=== PATIENT | male | born 1980 | race Caucasian/White ===

== ENCOUNTER 2018-03-07 10:22 | Day surgery (SDC) | payer BC ==
[~2018-03-07] VITALS: Ht 180.3 cm; Wt 81.5 kg
[2018-03-07 11:01] VITALS: BP 125/82
[2018-03-07] MEDS ORDERED: NO MEDICATIONS (11:06)
[2018-03-07] MEDS ORDERED: LACTATED RINGERS 1,000 ML IV SCH (11:28)
[2018-03-07] MEDS ORDERED: MIDAZOLAM 1 MG/ML, 5ML ONE (13:36)
[2018-03-07] MEDS ORDERED: OMNIPAQUE 350 MG/ML, 50 ML BOTTLE ONE (13:55)
== END 2018-03-07 15:45 | disposition home or self-care (01) ==
LOC: OUT 10:22
PROVIDERS: ATTEND Urology
DX: N35.011 Post-traumatic bulbous urethral stricture (principal); Z87.891 Personal history of nicotine dependence; Z72.89 Other problems related to lifestyle; Z98.890 Other specified postprocedural states
CPT/HCPCS: 51610; 74450; J2250; Q9967

== ENCOUNTER 2018-05-22 05:32 | Observation (INO) | payer BC ==
[~2018-05-22] VITALS: Ht 180.3 cm; Wt 78.5 kg
[~2018-05-22 05:32] MED LIST: NO MEDICATIONS
[2018-05-22] MEDS ORDERED: BUPIVACAINE/PF-EPI 0.5% 1:200K ONE (06:39)
[2018-05-22] MEDS ORDERED: THROMBIN 5,000 UNIT VIAL TP ONE (06:39)
[2018-05-22] MEDS ORDERED: MIDAZOLAM 1 MG/ML, 2ML ONE (07:20)
[2018-05-22] MEDS ORDERED: FENTANYL PF 250 MCG/5ML ONE (07:21)
[2018-05-22 07:31] LABS: MICROSCOPIC NOT IND
[2018-05-22 07:35] LABS: CULTURE INDICATED? NO
[2018-05-22] MEDS ORDERED: CHLORHEXIDINE 15 ML UDC MM STA (07:39)
[2018-05-22] MEDS ORDERED: LACTATED RINGERS 1,000 ML IV SCH (07:53)
[2018-05-22] MEDS ORDERED: ONDANSETRON 2MG/ML, 2ML IV PRN ×2 (08:00→13:30)
[2018-05-22] MEDS ORDERED: ONDANSETRON ODT 8 MG PO PRN (08:00)
[2018-05-22] MEDS ORDERED: DIAZEPAM 5 MG/ML, 2ML IVPush PRN (08:00)
[2018-05-22] MEDS ORDERED: ACETAMINOPHEN 325 MG TABLET PO PRN (08:00)
[2018-05-22] MEDS ORDERED: FENTANYL PF 100 MCG/2ML IV PRN (08:00)
[2018-05-22] MEDS ORDERED: OXYcodone 5 MG/5 ML ORAL.SOL UDC PO PRN (08:00)
[2018-05-22] MEDS ORDERED: HYDROmorphone 2 MG/ML, 1ML IVPush PRN (08:00)
[2018-05-22] MEDS ORDERED: PROMETHAZINE 25 MG/ML, 1ML IV PRN (08:00)
[2018-05-22] MEDS ORDERED: PROPOFOL 50 ML ONE ×2 (08:45→10:51)
[2018-05-22] MEDS ORDERED: FENTANYL PF 100 MCG/2ML ONE (10:11)
[2018-05-22] MEDS ORDERED: SUCCINYLCHOLINE 20 MG/ML, 10ML ONE (10:50)
[2018-05-22] MEDS ORDERED: PROPOFOL 10 MG/ML, 20ML ONE (10:50)
[2018-05-22] MEDS ORDERED: ONDANSETRON 2MG/ML, 2ML ONE (10:50)
[2018-05-22] MEDS ORDERED: NEOSTIGMINE 1 MG/ML, 10ML ONE (10:50)
[2018-05-22] MEDS ORDERED: DEXAMETHASONE 4 MG/ML, 1ML ONE (10:50)
[2018-05-22] MEDS ORDERED: CEFAZOLIN 1,000 MG ONE (10:50)
[2018-05-22] MEDS ORDERED: ROCURONIUM 10MG/ML,5ML ONE (10:50)
[2018-05-22] MEDS ORDERED: GLYCOPYRROLATE 0.2MG/1ML, 5ML ONE (10:50)
[2018-05-22] MEDS ORDERED: MEPERIDINE/PF 50 MG/ML ONE (10:55)
[2018-05-22] MEDS ORDERED: NEOSPORIN OINT, 15GM ONE (11:12)
[2018-05-22] MEDS ORDERED: CEFAZOLIN PMX 1GM/50ML 50 ML IV ONE (12:00)
[2018-05-22] MEDS ORDERED: HYDROmorphone 2 MG/ML, 1ML ONE (12:25)
[2018-05-22] MEDS ORDERED: OXYcodone 5 MG/5 ML ORAL.SOL UDC ONE (12:25)
[2018-05-22 13:30] VITALS: BP 119/64
[2018-05-22] MEDS ORDERED: morphine SULFATE 10 MG/ML, 1ML IV PRN (13:30)
[2018-05-22 19:27] VITALS: BP_SYST 108; BP_SYST 18; BP_DIAS 57
[2018-05-22] MEDS ORDERED: LEVOFLOXACIN/PMX 500MG/100ML 100 ML IV SCH (19:30)
[2018-05-22] MEDS: HYDROcodone/APAP 5/325 TABLET PO PRN (19:56)
[2018-05-22] MEDS: DOCUSATE 100 MG CAPSULE PO SCH (19:56)
[2018-05-22] MEDS: LACTATED RINGERS 1,000 ML IV SCH (19:57)
[2018-05-22] MEDS: HEPARIN 5,000 UNITS/ML, 1ML SQ SCH (22:10)
[2018-05-23 00:21] VITALS: BP 107/61
[2018-05-23 05:21] VITALS: BP 112/59
[2018-05-23] MEDS: HEPARIN 5,000 UNITS/ML, 1ML SQ SCH (06:17)
[2018-05-23] MEDS: LACTATED RINGERS 1,000 ML IV SCH (06:17)
[2018-05-23] MEDS: HYDROcodone/APAP 5/325 TABLET PO PRN (06:17)
[2018-05-23 06:29] VITALS: BP 133/66
[2018-05-23] MEDS: DOCUSATE 100 MG CAPSULE PO SCH (07:53)
[2018-05-23 12:41] VITALS: BP 127/68
[2018-05-23] MEDS ORDERED: HYDR-3240 PO (13:18)
[2018-05-23] MEDS ORDERED: DOCU-131 PO (13:18)
[2018-05-23] MEDS ORDERED: NITR100C56 PO (13:20)
[2018-05-23] MEDS ORDERED: BACITRACIN OINTMENT TP (13:23)
[2018-05-23] MEDS ORDERED: OXYB10TA6 PO (13:27)
== END 2018-05-23 15:10 | disposition home or self-care (01) ==
LOC: OUT 05:32 → 4NOR 13:09 → OUT 13:40 → DCLOUNGE 05-23 14:52
PROVIDERS: ADMIT Urology; ATTEND Urology
DX: N35.014 Post-traumatic urethral stricture, male, unspecified (principal)
CPT/HCPCS: 53410; 81003; 88305; 96365; 96372; C1769; G0378; J0690; J1100; J1170; J1644; J1956; J2175; J2250; J2405; J2704; J2710; J3010; J3490; J7120; J0330

== ENCOUNTER 2018-06-11 08:05 | Outpatient (CLI) | payer BC ==
[~2018-06-11 08:05] MED LIST changes: +BACITRACIN OINTMENT TP; +DOCU-131 PO; +HYDR-3240 PO; +NITR100C56 PO; +OXYB10TA6 PO
== END 2018-06-11 23:59 | disposition home or self-care (01) ==
LOC: RAD 08:05
PROVIDERS: ATTEND Urology
DX: N35.011 Post-traumatic bulbous urethral stricture (principal)
CPT/HCPCS: 51600; 74455